=== PATIENT | female | born 1960 | race Caucasian/White ===

== ENCOUNTER → 2020-10-11 | Outpatient (CLI) | payer OTHER ==
[~2020-10-11] MED LIST: CYCLOBENZAPRINE10 MG PO; FLOVENT 110 M110 MCG INH; LEVOFLOXACIN500 MG PO; LISINOPRIL20 MG PO; NAPROXEN250 MG PO; NICODERM21 MG/24 H TD; PERCOCET 325 MG1 TAB PO; PROVENTIL0.09 MG/A1 IH; TYLENOL325 M1 PO; ZESTRIL20 MG PO
== END | disposition home or self-care (01) ==
LOC: RAD 15:37
PROVIDERS: ATTEND Chiropractor
DX: M48.02 Spinal stenosis, cervical region (principal); M25.78 Osteophyte, vertebrae

== ENCOUNTER 2020-10-13 10:45 | Emergency (ER) | payer OTHER ==
[~2020-10-13] VITALS: Wt 68.0 kg
[~2020-10-13 10:45] MED LIST changes: -CYCLOBENZAPRINE10 MG PO; -NAPROXEN250 MG PO; -TYLENOL325 M1 PO
[2020-10-13 10:54] VITALS: BP 148/54
[2020-10-13] MEDS ORDERED: CYCLOBENZAPRINE10 MG PO (11:56)
[2020-10-13] MEDS ORDERED: NAPROXEN250 MG PO (11:56)
[2020-10-13] MEDS ORDERED: TYLENOL325 M1 PO (11:56)
== END 2020-10-13 11:59 | disposition home or self-care (01) ==
LOC: ED 10:45
DX: I10 Essential (primary) hypertension (principal); F17.200 Nicotine dependence, unspecified, uncomplicated; Z79.899 Other long term (current) drug therapy

== ENCOUNTER → 2021-05-16 | Outpatient (CLI) | payer OTHER ==
[~2021-05-16] MED LIST changes: +CYCLOBENZAPRINE10 MG PO; +NAPROXEN250 MG PO; +TYLENOL325 M1 PO
== END | disposition home or self-care (01) ==
LOC: MAMMO 06:52
PROVIDERS: ATTEND Physician Assistant
DX: Z12.31 Encounter for screening mammogram for malignant neoplasm of breast (principal)

== ENCOUNTER 2022-08-05 13:24 | Emergency (ER) | payer OTHER ==
[~2022-08-05] VITALS: Ht 162.5 cm; Wt 72.6 kg
[2022-08-05 13:27] VITALS: BP 131/64
[2022-08-05 14:02] LABS: BASO # 0.1 10*3/uL (0.0-0.1); BASO % 0.4 % (0.0-1.0); EOS # 0.1 10*3/uL (0.0-0.4); EOS % 0.6 % (1.0-4.0); HEMATOCRIT 42.9 % (37.0-47.0); LYMPH # 4.3 10*3/uL (1.3-4.4); LYMPH % 37.5 % (27.0-41.0); MEAN CELL VOLUME 93.1 fl (81.0-99.0); MEAN CORPUSCULAR HGB 30.2 pg (27.0-31.0); MEAN CORPUSCULAR HGB CONC 32.4 g/dl (33.0-37.0); MEAN PLATELET VOLUME 9.6 fl (9.6-12.3); MONO # 0.7 10*3/uL (0.1-1.0); MONO % 6.4 % (3.0-9.0); NEUT # 6.2 10*3/uL (2.3-7.9); NEUT % 54.6 % (47.0-73.0); PLATELET COUNT AUTOMATED 324 10*3/uL (130-400); RED BLOOD COUNT 4.61 10*6/uL (4.10-5.10); RED CELL DISTRI WIDTH 13.3 % (0-14.5); WHITE BLOOD COUNT 11.4 10*3/uL (4.8-10.8)
[2022-08-05 14:25] LABS: ALKALINE PHOSPHATASE 72 U/L (46-116); BUN 15 mg/dl (9-23); CHLORIDE 105 mmol/L (98-107); POTASSIUM 3.8 mmol/L (3.4-5.1); SGPT/ALT 12 U/L (10-49); TOTAL PROTEIN 7.2 gm/dL (6.0-8.0)
== END 2022-08-05 16:30 | disposition home or self-care (01) ==
LOC: ED 13:24
PROVIDERS: Student in an Organized Health Care Education/Training Program
DX: S01.91XA Laceration without foreign body of unspecified part of head, initial encounter (principal); R55 Syncope and collapse; I10 Essential (primary) hypertension; Z79.899 Other long term (current) drug therapy; W18.39XA Other fall on same level, initial encounter; Y93.89 Activity, other specified; Y92.89 Other specified places as the place of occurrence of the external cause; Y99.8 Other external cause status